=== PATIENT | female | born 1950 | race Caucasian/White ===

== ENCOUNTER → 2021-07-18 05:29 | Outpatient (CLI) | payer MEDICARE, SELFPAY ==
[2021-07-19 01:26] LABS: SARS-CoV-2 RNA PCR Negative
== END ==
PROVIDERS: PCP Nurse Practitioner Family; Visit Provider Nurse Practitioner Family
DX: Z20.822 Contact with and (suspected) exposure to COVID-19 (principal)
CPT/HCPCS: C9803; U0003; U0005

== ENCOUNTER 2022-08-28 13:59 | Emergency (ER) | payer MEDICARE, SELFPAY ==
--- NOTE | ~2022-08-28 | XR_ITS ---
EXAMINATION: XR chest 2V DATE: 08/28/2022 15:01 INDICATION: Cough and hypoxia TECHNIQUE: Frontal and lateral views of the chest are obtained COMPARISON: None available FINDINGS: There are patchy airspace opacities throughout the lungs. There are small pleural effusions . No pneumothorax is identified. The cardiomediastinal silhouette is normal. There is moderate thorac ic spondylosis. IMPRESSION: 1. Patchy bilateral airspace opacities, consistent with pneumonia versus atelectasis versus pulmonary edema. 2. Small pleural effusions. Reviewed, dictated and finalized at location B. T COLLECTOR IMPRESSION: 1. Patchy bilateral airspace opacities, consistent with pneumonia versus atelec tasis versus pulmonary edema. 2. Small pleural effusions.
[2022-08-28 14:25] VITALS: BP 137/84; PULSE 86; RESP 20; TEMP 37; O2SAT 87
--- NOTE | 2022-08-28 14:38 | PC.NURSE ---
Rechecked Spo2 with different monitor, good pleth, continues to be at 85% on room air. Placed on 2 liters NC, improved to 92%, HR 97.
[2022-08-28 14:45] VITALS: O2SAT 94
--- NOTE | 2022-08-28 15:13 | ED.GENADULT ---
HPI - General Adult General Chief complaint: Upper Respiratory Infection Stated complaint: burning sensation in chest sob Source: patient Mode of arrival: ambulatory Limitations: no limitations History of Present Illness HPI narrative: Patient presents for evaluation of respiratory symptoms. She indicates her symptoms started early last week. She reports a nonproductive cough and shortness of breath. Her shortness of breath is worse with exertion. She reports a burning sensation in her chest with ambulation however she denies chest pain per se. No fever, chills, nausea, vomiting, diarrhea. No recent sick contacts to her knowledge. She smokes 1 pack per day. No personal history of COVID. She has received COVID vaccination. She states it has been difficult to smoke while sick. No additional complaints or concerns. Related Data Home Medications Medication Instructions Recorded Confirmed lisinopril 20 mg tablet 20 mg BID 08/28/22 08/28/22 Allergies Allergy/AdvReac Type Severity Reaction Status Date / Time codeine Allergy Unknown Chest Pain Verified 08/28/22 14:44 Review of Systems Review of Systems: CONSTITUTIONAL: Denies fever, chills, or sweats. EYES: Denies visual changes, redness, or discharge. ENT: Denies rhinorrhea, congestion, sore throat, or otalgia. CARDIOVASCULAR: Denies chest pain, palpitations, or edema. RESPIRATORY: Reports cough and shortness of breath. GASTROINTESTINAL: Denies abdominal pain, nausea, vomiting, or diarrhea. GENITOURINARY: Denies dysuria or hematuria. SKIN: Denies rash or itching. MUSCULOSKELETAL: Denies back pain, joint pain, or myalgia. NEUROLOGIC: Denies headache, numbness, dizziness, or weakness. PSYCHIATRIC: Denies anxiety or depression. FOR[facility]LY [facility] Past Medical History Medical History Hypertension Surgical History Surgical History No pertinent past surgical history Family History Family History Mother Family history non-contributory Social History Social History Smoking packs per day: 1 Smoking cigarettes per day: 20.0 Smoking status: Current every day smoker Alcohol intake: former Living arrangements: with family Gender identity (if verbalized by the patient): Female Sexual Orientation (if Verbalized by the Patient): Straight or Heterosexual Spiritual care concerns: No Exam Narrative: GENERAL: Well-appearing, well-nourished, and in no acute distress. HEAD: Normocephalic, atraumatic. EYES: PERRLA and EOMI. ENT: Nares clear, no rhinorrhea or epistaxis. Mucous membranes moist. Oropharynx without tonsillar hypertrophy exudate or other lesions. Bilateral TMs pearly benjamin nonbulging NECK: Supple. No adenopathy or masses. No carotid bruits or JVD CHEST: Occasional cough on exam. Mild inspiratory and expiratory wheezing bilaterally. O2 at 2 L per nasal cannula. HEART: Regular rate and rhythm. No murmur heard. Normal peripheral pulses. ABDOMEN: Soft, nontender, nondistended, normal active bowel sounds. EXTREMITIES: Normal range of motion. No edema. SKIN: Warm, dry, no rash. NEURO: No focal deficits. Alert and oriented x3. PSYCH: Normal mood and affect. Course Course Emergency Course: This is a 71-year-old female who presented for evaluation of respiratory symptoms. On arrival her saturations are in the 80s. She was placed on 2 L per nasal cannula and saturations improved to the mid 90s. Chest x-ray consistent with pneumonia. Advise patient that given situation she needs to be transferred to the emergency department, to which she was agreeable. I contacted [facility] and spoke with RN, Melly. She indicates that Dr Jameson will accept pt for transfer there. Transported per EMS Level of Care: Express Care
--- NOTE | 2022-08-28 15:18 | PC.NURSE ---
Daughter in room. Pt agreeable to go to [facility] via EMS due to oxygen requirement. Requested community theater actor to call for ambulance ride.
--- NOTE | 2022-08-28 15:28 | PC.NURSE ---
Ambulance arrival, report given to EMS
[2022-08-28 15:30] VITALS: O2SAT 97
== END 2022-08-28 15:30 | disposition short-term general hospital (02) ==
PROVIDERS: Emergency Provider Nurse Practitioner; PCP Nurse Practitioner Family
DX: J18.9 Pneumonia, unspecified organism (principal); R09.02 Hypoxemia; I10 Essential (primary) hypertension; F17.210 Nicotine dependence, cigarettes, uncomplicated
CPT/HCPCS: 71046; 99203; 99205; G0463